=== PATIENT | female | born 1985 | race Caucasian/White ===

== ENCOUNTER 2019-11-25 13:26 | Emergency (ER) | payer MEDICAID, OTHER ==
[~2019-11-25] VITALS: Ht 170.2 cm; Wt 88.5 kg
[2019-11-25 13:32] VITALS: BP 144/77
[2019-11-25] MEDS ORDERED: cefTRIAXone SOD 1,000 MG VL IM ONE (14:45)
== END 2019-11-25 15:00 | disposition home or self-care (01) ==
LOC: EDSEX 13:26 → ER 13:26
DX: S80.221A Blister (nonthermal), right knee, initial encounter (principal); Z88.1 Allergy status to other antibiotic agents; X58.XXXA Exposure to other specified factors, initial encounter; Y93.89 Activity, other specified; Y92.89 Other specified places as the place of occurrence of the external cause; Y99.8 Other external cause status
CPT/HCPCS: 96372; 99283; J0696